=== PATIENT | female | born 1960 | race Caucasian/White ===

== ENCOUNTER 2017-07-05 11:00 | Emergency (ER) | payer OTHER ==
[2015-01-28 19:22] VITALS: BMI 27.8
[~2017-07-05 11:00] MED LIST: ACETAMINOPHEN325 MG PO; ADVAIR 250/501 DISK INH; CARAFATE1 G PO; CELEXA40 MG PO; HYDROCODONE-APA1 TAB PO; NIFEREX-150 CAP1 CA3 PO; PRAVASTATIN SOD10 MG PO; PRILOSEC20 MG PO; RESTORIL15 MG PO; TOFRANIL25 MG PO; VESICARE10 MG PO
[2017-07-05 12:04] LABS: APPEARANCE CLEAR (CLEAR); BILIRUBIN NEGATIVE (NEGATIVE); COLOR STRAW (YELLOW); GLUCOSE NEGATIVE (NEGATIVE); KETONE NEGATIVE (NEGATIVE); NITRITE NEGATIVE (NEGATIVE); PROTEIN NEGATIVE (NEGATIVE); UROBILINOGEN NORMAL (NORMAL)
[2017-07-05 12:14] LABS: BASOPHILS 0.2 % (0-2); EOSINOPHILS 0.8 % (0-7); HEMATOCRIT 42.5 % (36.0-48.0); HEMOGLOBIN 14.7 g/dL (12-16); IMMATURE GRANULOCYTES 0.3 % (0-5); LYMPHOCYTES 27.9 % (15-50); MCH 33.3 pg (26.0-34.0); MCHC 34.6 g/dL (31.0-37.0); MCV 96.4 fL (80.0-100.0); MEAN PLATELET VOLUME 12.1 fL (7.4-10.4); NEUTROPHILS 64.8 % (40-80); RBC 4.41 10x6/uL (4.00-5.40); RDW 12.3 % (11.5-14.5); WBC 8.8 10x3/uL (4.8-10.8)
[2017-07-05 12:20] LABS: PLATELET COUNT 157 10x3/uL (130-400)
[2017-07-05 12:26] LABS: ALBUMIN 3.8 g/dL (3.4-5.0); BILIRUBIN - TOTAL 0.22 mg/dL (0.2-1.3); CALCIUM 9.6 mg/dL (8.5-10.1); CARBON DIOXIDE 29.2 mmol/L (21.0-32.0); POTASSIUM - SERUM 4.2 mmol/L (3.5-5.1); PROTEIN - SERUM 7.4 g/dL (6.4-8.2)
== END 2017-07-05 14:29 | disposition home or self-care (01) ==
LOC: D.ER 11:00
PROVIDERS: Nurse Practitioner Family
DX: N39.0 Urinary tract infection, site not specified (principal); F17.200 Nicotine dependence, unspecified, uncomplicated

== ENCOUNTER 2017-09-21 06:51 | Emergency (ER) | payer OTHER ==
[2015-01-28 19:22] VITALS: BMI 27.8
== END 2017-09-21 10:40 | disposition home or self-care (01) ==
LOC: D.ER 06:51
DX: J44.1 Chronic obstructive pulmonary disease with (acute) exacerbation (principal); R06.00 Dyspnea, unspecified; F17.200 Nicotine dependence, unspecified, uncomplicated

== ENCOUNTER 2018-03-17 08:56 | Emergency (ER) | payer OTHER ==
[~2018-03-17] VITALS: Ht 157.5 cm; Wt 73.6 kg
[2018-03-17 09:06] VITALS: Ht 157.5 cm; Wt 73.6 kg
[2018-03-17 09:50] LABS: BASOPHILS 0.1 % (0-2); EOSINOPHILS 0.5 % (0-7); HEMATOCRIT 47.8 % (36.0-48.0); HEMOGLOBIN 16.8 g/dL (12-16); IMMATURE GRANULOCYTES 0.4 % (0-5); LYMPHOCYTES 4.9 % (15-50); MCH 33.3 pg (26.0-34.0); MCHC 35.1 g/dL (31.0-37.0); MCV 94.8 fL (80.0-100.0); MEAN PLATELET VOLUME 12.5 fL (7.4-10.4); MONOCYTES 4.3 % (2-11); NEUTROPHILS 89.8 % (40-80); PLATELET COUNT 178 10x3/uL (130-400); RBC 5.04 10x6/uL (4.00-5.40); RDW 12.7 % (11.5-14.5); WBC 15.2 10x3/uL (4.8-10.8)
[2018-03-17 10:21] LABS: APPEARANCE SLT CLOUDY (CLEAR); BILIRUBIN NEGATIVE (NEGATIVE); COLOR YELLOW (YELLOW); GLUCOSE NEGATIVE (NEGATIVE); KETONE NEGATIVE (NEGATIVE); NITRITE NEGATIVE (NEGATIVE); PROTEIN TRACE mg/dL (NEGATIVE); SPECIFIC GRAVITY 1.025 (1.005-1.020); UROBILINOGEN NORMAL (NORMAL)
[2018-03-17 10:22] LABS: BACTERIA FEW /hpf (NONE SEEN); EPITHELIAL CELLS 0-5 /hpf (0-5); MUCUS >1+ /lpf (NONE SEEN); WHITE CELLS - URINE OCC /hpf (0-5)
[2018-03-17 10:24] LABS: ALBUMIN 4.1 g/dL (3.4-5.0); ANION GAP 16.1 mmol/L (8-16); BILIRUBIN - TOTAL 0.36 mg/dL (0.2-1.3); CALCIUM 9.5 mg/dL (8.5-10.1); CARBON DIOXIDE 25.8 mmol/L (21.0-32.0); POTASSIUM - SERUM 4.9 mmol/L (3.5-5.1); PROTEIN - SERUM 7.6 g/dL (6.4-8.2)
[2018-03-17] MEDS ORDERED: PROTONIX40 MG PO (14:33)
[2018-03-17] MEDS ORDERED: LEVAQUIN500 MG PO (14:33)
[2018-03-17 15:04] VITALS: BP 103/68
== END 2018-03-17 14:47 | disposition home or self-care (01) ==
LOC: D.ER 08:56
PROVIDERS: Family Medicine
DX: J20.9 Acute bronchitis, unspecified (principal); K44.9 Diaphragmatic hernia without obstruction or gangrene; J44.9 Chronic obstructive pulmonary disease, unspecified; F17.200 Nicotine dependence, unspecified, uncomplicated; K21.9 Gastro-esophageal reflux disease without esophagitis

== ENCOUNTER 2018-06-27 08:32 | Emergency (ER) | payer OTHER ==
[~2018-06-27] VITALS: Ht 157.5 cm; Wt 69.1 kg
[~2018-06-27 08:32] MED LIST changes: +LEVAQUIN500 MG PO; +PROTONIX40 MG PO
[2018-06-27 08:55] VITALS: Ht 157.5 cm; Wt 69.1 kg
[2018-06-27 09:23] LABS: BASOPHILS 0.3 % (0-2); EOSINOPHILS 1.3 % (0-7); HEMATOCRIT 41.3 % (36.0-48.0); HEMOGLOBIN 14.4 g/dL (12-16); IMMATURE GRANULOCYTES 1.2 % (0-5); LYMPHOCYTES 24.9 % (15-50); MCH 33.1 pg (26.0-34.0); MCHC 34.9 g/dL (31.0-37.0); MCV 94.9 fL (80.0-100.0); MEAN PLATELET VOLUME 12.1 fL (7.4-10.4); MONOCYTES 5.6 % (2-11); NEUTROPHILS 66.7 % (40-80); PLATELET COUNT 198 10x3/uL (130-400); RBC 4.35 10x6/uL (4.00-5.40); RDW 12.4 % (11.5-14.5); WBC 11.2 10x3/uL (4.8-10.8)
[2018-06-27 09:53] LABS: ALBUMIN 3.9 g/dL (3.4-5.0); ANION GAP 15.1 mmol/L (8-16); BILIRUBIN - TOTAL 0.24 mg/dL (0.2-1.3); CALCIUM 9.5 mg/dL (8.5-10.1); CARBON DIOXIDE 27.3 mmol/L (21.0-32.0); POTASSIUM - SERUM 4.4 mmol/L (3.5-5.1); PROTEIN - SERUM 7.4 g/dL (6.4-8.2)
[2018-06-27] MEDS ORDERED: ZITHROMAX250 MG PO (10:44)
[2018-06-27] MEDS ORDERED: GUAIFENESI100 MG/5 M PO (10:46)
[2018-06-27] MEDS ORDERED: ALBUTEROL SULF8.5 GM INH (10:46)
[2018-06-27 11:29] VITALS: BP 121/86
== END 2018-06-27 11:29 | disposition home or self-care (01) ==
LOC: D.ER 08:32
PROVIDERS: Emergency Medicine
DX: J40 Bronchitis, not specified as acute or chronic (principal); R09.89 Other specified symptoms and signs involving the circulatory and respiratory systems; J44.9 Chronic obstructive pulmonary disease, unspecified; F17.200 Nicotine dependence, unspecified, uncomplicated

== ENCOUNTER 2018-08-30 11:45 | Emergency (ER) | payer SELFPAY ==
[~2018-08-30] VITALS: Ht 157.5 cm; Wt 73.6 kg
[~2018-08-30 11:45] MED LIST changes: +ALBUTEROL SULF8.5 GM INH; +GUAIFENESI100 MG/5 M PO; +ZITHROMAX250 MG PO
[2018-08-30 12:24] VITALS: BP 139/92; Ht 157.5 cm; Wt 73.6 kg
== END 2018-08-30 14:30 | disposition left against medical advice (07) ==
LOC: D.ER 11:45
DX: R09.89 Other specified symptoms and signs involving the circulatory and respiratory systems (principal)

== ENCOUNTER 2019-05-19 23:55 | Emergency (ER) | payer OTHER ==
[~2019-05-19] VITALS: Ht 157.5 cm; Wt 69.1 kg
[2019-05-20] VITALS: Ht 157.5 cm; Wt 69.1 kg
[2019-05-20] MEDS ORDERED: TOFRANIL50 MG PO (00:03)
[2019-05-20 02:16] VITALS: BP 132/85
== END 2019-05-20 02:17 | disposition home or self-care (01) ==
LOC: D.ER 23:55
DX: S80.02XA Contusion of left knee, initial encounter (principal); V49.9XXA Car occupant (driver) (passenger) injured in unspecified traffic accident, initial encounter; Y93.89 Activity, other specified; Y92.410 Unspecified street and highway as the place of occurrence of the external cause; M25.552 Pain in left hip; M54.5 Low back pain; S16.1XXA Strain of muscle, fascia and tendon at neck level, initial encounter; S66.912A Strain of unspecified muscle, fascia and tendon at wrist and hand level, left hand, initial encounter